=== PATIENT | female | born 1925 | race Caucasian/White ===

== ENCOUNTER 2017-04-01 11:13 | Inpatient (IN) | payer MEDICARE, OTHER ==
[~2017-04-01] VITALS: Ht 162.6 cm; Wt 53.6 kg
[2017-04-01] MEDS ORDERED: SODIUM CHLORIDE FLUSH 10ML SYR IVF ONE (11:30)
[2017-04-01] MEDS ORDERED: PLEASE ENTER ALLERGIES MC SCH ×2 (12:00)
[2017-04-01 12:01] LABS: ASPARTATE AMINO TRANSFERASE 10 U/L (15-37); BLOOD UREA NITROGEN 12 mg/dL (7-18)
[2017-04-01 12:13] LABS: PATH.CAST-FLAG NOT PRESENT; SPERM-FLAG NOT PRESENT; SRC-FLAG NOT PRESENT; XTAL-FLAG NOT PRESENT; YLC-FLAG NOT PRESENT
[2017-04-01 12:32] LABS: HEMATOCRIT 26.2 % (34.6-47.8); HEMOGLOBIN 7.4 g/dL (11.7-16.4); WHITE BLOOD COUNT 19.1 x10^3/uL (3.4-10)
[2017-04-01 12:33] LABS: DIFF TOTAL CELLS COUNTED 100 CELL DIFF
[2017-04-01 12:36] LABS: ANISOCYTOSIS 2+; HYPOCHROMIA 1+; MICROCYTOSIS 1+; VERIFY COUNTS? YES
[2017-04-01 12:37] LABS: POLYCHROMASIA 1+
[2017-04-01 12:38] LABS: POIKILOCYTOSIS 1+; STOMATOCYTES 1+
[2017-04-01 12:39] LABS: LARGE PLATELETS 1+; TARGET CELLS 1+
[2017-04-01] MEDS ORDERED: CITA20TA9 PO (13:12)
[2017-04-01] MEDS ORDERED: FOLI-17 PO (13:13)
[2017-04-01] MEDS ORDERED: SENN-87 PO (13:14)
[2017-04-01] MEDS ORDERED: POLY17PO5 PO (13:14)
[2017-04-01] MEDS ORDERED: QUET50TA5 PO (13:15)
[2017-04-01] MEDS ORDERED: PRED5TAB PO (13:16)
[2017-04-01] MEDS ORDERED: OMEP-110 PO (13:16)
[2017-04-01] MEDS ORDERED: METH10TA54 PO (13:17)
[2017-04-01] MEDS ORDERED: ALEN70TA3 PO (13:18)
[2017-04-01] MEDS ORDERED: NITR100C56 PO (13:19)
[2017-04-01] MEDS ORDERED: POTA20PA25 PO (13:19)
[2017-04-01] MEDS ORDERED: LACT1CAP40 PO (13:20)
[2017-04-01] MEDS ORDERED: OMNIPAQUE 350 MG/ML, 100ML BOTTLE ONE (14:06)
[2017-04-01] MEDS ORDERED: PIPERACILLIN/TAZO/PMX 3.375GM 50 ML IV ONE (15:00)
[2017-04-01] MEDS ORDERED: PIPERACILLIN/TAZO/PMX 3.375GM 50 ML ONE (15:09)
[2017-04-01] MEDS ORDERED: morphine SULFATE 10 MG/ML, 1ML IVPush PRN (15:30)
[2017-04-01] MEDS ORDERED: ONDANSETRON 2MG/ML, 2ML IVPush PRN (15:30)
[2017-04-01] MEDS ORDERED: ENALAPRILAT 1.25 MG/ML, 2ML IVPush PRN (15:30)
[2017-04-01] MEDS ORDERED: GOLYTELY 4,000ML ORAL.SOL PO ONE (18:30)
[2017-04-01] MEDS ORDERED: SODIUM CHLORIDE 0.9% 1,000 ML IV SCH (19:00)
[2017-04-01 22:12] VITALS: BP 148/73
[2017-04-02] MEDS ORDERED: GOLYTELY 4,000ML ORAL.SOL PO ONE (01:00)
[2017-04-02] MEDS: HEPARIN 5,000 UNITS/ML, 1ML SQ SCH ×4 (01:03→23:11)
[2017-04-02 01:17] VITALS: BP 114/71
[2017-04-02] MEDS: FAMOTIDINE 20 MG/2 ML IVPush SCH ×3 (01:24→20:02)
[2017-04-02 05:58] LABS: BLOOD UREA NITROGEN 11 mg/dL (7-18)
[2017-04-02 06:01] LABS: ASPARTATE AMINO TRANSFERASE 14 U/L (15-37)
[2017-04-02 06:12] LABS: HEMOGLOBIN 7.4 g/dL (11.7-16.4)
[2017-04-02] MEDS ORDERED: POTASSIUM CHLORIDE 10 MEQ in D5%-0.9% NACL 1,000 ML IV SCH (06:30)
[2017-04-02 06:32] LABS: DIFF TOTAL CELLS COUNTED 100 CELL DIFF
[2017-04-02 06:36] LABS: ANISOCYTOSIS 2+; HYPOCHROMIA 1+; MICROCYTOSIS 1+; POIKILOCYTOSIS 1+; POLYCHROMASIA 1+; TARGET CELLS 1+; VERIFY COUNTS? YES
[2017-04-02 06:37] LABS: LARGE PLATELETS 1+; STOMATOCYTES 1+
[2017-04-02] MEDS: IRON SUCROSE COMPLEX 100MG/5ML IV SCH (08:32)
[2017-04-02 08:34] VITALS: BP 136/58
[2017-04-02 15:13] VITALS: BP 131/63
[2017-04-02 19:50] VITALS: BP 126/58
[2017-04-02 21:29] VITALS: BP 131/86
[2017-04-02] MEDS: POTASSIUM CHLORIDE 10 MEQ in D5%-0.9% NACL 1,000 ML IV SCH (21:52)
[2017-04-03] VITALS (12 sets, daily range): BP systolic 112–168; BP diastolic 51–84
[2017-04-03] MEDS: POTASSIUM CHLORIDE 10 MEQ in D5%-0.9% NACL 1,000 ML IV SCH ×2 (05:32→12:39)
[2017-04-03 06:40] LABS: ASPARTATE AMINO TRANSFERASE 17 U/L (15-37); BLOOD UREA NITROGEN 5 mg/dL (7-18)
[2017-04-03 08:01] LABS: HEMATOCRIT 23.8 % (34.6-47.8); WHITE BLOOD COUNT 18.7 x10^3/uL (3.4-10)
[2017-04-03 08:02] LABS: HEMOGLOBIN 6.8 g/dL (11.7-16.4)
[2017-04-03] MEDS: IRON SUCROSE COMPLEX 100MG/5ML IV SCH (08:44)
[2017-04-03] MEDS: FAMOTIDINE 20 MG/2 ML IVPush SCH ×2 (08:45→20:26)
[2017-04-03] MEDS: HEPARIN 5,000 UNITS/ML, 1ML SQ SCH ×2 (10:03→18:17)
[2017-04-03] MEDS ORDERED: FUROSEMIDE 20 MG/2 ML IV ONE (23:00)
[2017-04-04] MEDS: HEPARIN 5,000 UNITS/ML, 1ML SQ SCH ×3 (02:01→17:54)
[2017-04-04 02:29] VITALS: BP 122/67
[2017-04-04] MEDS: POTASSIUM CHLORIDE 10 MEQ in D5%-0.9% NACL 1,000 ML IV SCH (05:20)
[2017-04-04 06:10] LABS: HEMATOCRIT 34.8 % (34.6-47.8); HEMOGLOBIN 10.6 g/dL (11.7-16.4); WHITE BLOOD COUNT 25.2 x10^3/uL (3.4-10)
[2017-04-04 06:39] LABS: DIFF TOTAL CELLS COUNTED 100 CELL DIFF
[2017-04-04 06:40] LABS: ANISOCYTOSIS 1+; MICROCYTOSIS 1+; POLYCHROMASIA 1+; VERIFY COUNTS? YES
[2017-04-04 06:41] LABS: HYPOCHROMIA 1+; LARGE PLATELETS 1+; POIKILOCYTOSIS 1+; STOMATOCYTES 1+; TARGET CELLS 1+
[2017-04-04 09:05] VITALS: BP 123/59
[2017-04-04] MEDS: CEFTRIAXONE PMX 2GM/50ML 50 ML IV SCH (09:08)
[2017-04-04] MEDS: IRON SUCROSE COMPLEX 100MG/5ML IV SCH (09:09)
[2017-04-04] MEDS: FAMOTIDINE 20 MG/2 ML IVPush SCH ×2 (09:09→20:16)
[2017-04-04 14:22] VITALS: BP 149/53
[2017-04-04 19:46] VITALS: BP 134/79
[2017-04-05] MEDS: HEPARIN 5,000 UNITS/ML, 1ML SQ SCH ×3 (01:55→18:13)
[2017-04-05 03:49] VITALS: BP 146/72
[2017-04-05] MEDS: FAMOTIDINE 20 MG/2 ML IVPush SCH ×2 (07:54→19:35)
[2017-04-05] MEDS: IRON SUCROSE COMPLEX 100MG/5ML IV SCH (07:54)
[2017-04-05] MEDS: CEFTRIAXONE PMX 2GM/50ML 50 ML IV SCH (07:54)
[2017-04-05 08:25] VITALS: BP 153/68
[2017-04-05 14:59] VITALS: BP 120/74
[2017-04-05] MEDS ORDERED: GOLYTELY 4,000ML ORAL.SOL PO SCH (18:00)
[2017-04-05 18:51] VITALS: BP 148/73
[2017-04-06] VITALS (13 sets, daily range): BP systolic 116–160; BP diastolic 47–89
[2017-04-06] MEDS: HEPARIN 5,000 UNITS/ML, 1ML SQ SCH ×3 (02:00→17:49)
[2017-04-06] MEDS: IRON SUCROSE COMPLEX 100MG/5ML IV SCH (08:07)
[2017-04-06] MEDS: FAMOTIDINE 20 MG/2 ML IVPush SCH ×2 (08:07→20:40)
[2017-04-06] MEDS: CEFTRIAXONE PMX 2GM/50ML 50 ML IV SCH (08:07)
[2017-04-06] MEDS ORDERED: MIDAZOLAM 1 MG/ML, 5ML ONE (09:10)
[2017-04-06] MEDS ORDERED: FENTANYL PF 100 MCG/2ML ONE (09:10)
[2017-04-07] MEDS: HEPARIN 5,000 UNITS/ML, 1ML SQ SCH ×3 (01:34→17:58)
[2017-04-07 01:37] VITALS: BP 161/62
[2017-04-07 07:18] LABS: BLOOD UREA NITROGEN 6 mg/dL (7-18)
[2017-04-07 07:44] VITALS: BP 166/73
[2017-04-07] MEDS: FAMOTIDINE 20 MG/2 ML IVPush SCH ×2 (08:44→21:28)
[2017-04-07] MEDS: CEFTRIAXONE PMX 2GM/50ML 50 ML IV SCH (08:44)
[2017-04-07] MEDS ORDERED: FUROSEMIDE 20 MG/2 ML IV ONE (11:00)
[2017-04-07] MEDS: POTASSIUM CHLORIDE 20 MEQ TAB.ER.PRT PO SCH ×2 (11:57→13:57)
[2017-04-07 13:33] VITALS: BP 136/45
[2017-04-07 18:34] VITALS: BP 137/75
[2017-04-08] MEDS: HEPARIN 5,000 UNITS/ML, 1ML SQ SCH ×3 (02:08→18:00)
[2017-04-08 02:19] VITALS: BP 139/82
[2017-04-08 06:13] LABS: BLOOD UREA NITROGEN 5 mg/dL (7-18)
[2017-04-08 07:08] LABS: HEMATOCRIT 35.5 % (34.6-47.8); HEMOGLOBIN 10.6 g/dL (11.7-16.4); WHITE BLOOD COUNT 22.8 x10^3/uL (3.4-10)
[2017-04-08 07:09] LABS: DIFF TOTAL CELLS COUNTED 100 CELL DIFF
[2017-04-08 07:27] VITALS: BP 156/82
[2017-04-08 07:27] LABS: VERIFY COUNTS? YES
[2017-04-08 07:28] LABS: ANISOCYTOSIS 2+; SPHEROCYTES 1+
[2017-04-08 07:29] LABS: HYPOCHROMIA 2+; MICROCYTOSIS 1+; OVALOCYTES 1+; POIKILOCYTOSIS 2+
[2017-04-08 07:30] LABS: TARGET CELLS 1+
[2017-04-08 07:31] LABS: GIANT PLATELETS 1+; LARGE PLATELETS 1+
[2017-04-08] MEDS: FAMOTIDINE 20 MG/2 ML IVPush SCH ×2 (08:57→22:09)
[2017-04-08] MEDS: CEFTRIAXONE PMX 2GM/50ML 50 ML IV SCH (08:57)
[2017-04-08] MEDS ORDERED: FUROSEMIDE 40 MG/4 ML IV ONE (09:00)
[2017-04-08 13:22] VITALS: BP 126/74
[2017-04-08 18:30] VITALS: BP 146/73
[2017-04-09 01:59] VITALS: BP 116/65
[2017-04-09] MEDS: HEPARIN 5,000 UNITS/ML, 1ML SQ SCH ×3 (02:30→17:30)
[2017-04-09 07:09] LABS: HEMATOCRIT 37.6 % (34.6-47.8); HEMOGLOBIN 11.1 g/dL (11.7-16.4); WHITE BLOOD COUNT 18.4 x10^3/uL (3.4-10)
[2017-04-09 07:13] LABS: BLOOD UREA NITROGEN 7 mg/dL (7-18)
[2017-04-09 08:00] VITALS: BP 112/63
[2017-04-09] MEDS ORDERED: FUROSEMIDE 40 MG/4 ML IV ONE (08:30)
[2017-04-09 08:55] LABS: DIFF TOTAL CELLS COUNTED 100 CELL DIFF
[2017-04-09] MEDS: CEFTRIAXONE PMX 2GM/50ML 50 ML IV SCH (09:29)
[2017-04-09] MEDS: POTASSIUM CHLORIDE 20 MEQ TAB.ER.PRT PO SCH ×2 (09:30→14:39)
[2017-04-09] MEDS: FAMOTIDINE 20 MG/2 ML IVPush SCH ×2 (09:30→20:41)
[2017-04-09 09:45] LABS: VERIFY COUNTS? YES
[2017-04-09 09:46] LABS: ANISOCYTOSIS 2+; HYPOCHROMIA 2+; LARGE PLATELETS 1+; MICROCYTOSIS 1+; POIKILOCYTOSIS 2+
[2017-04-09 09:47] LABS: SPHEROCYTES 1+; TARGET CELLS 1+
[2017-04-09 14:58] VITALS: BP 110/74
[2017-04-09 20:00] VITALS: BP 134/82
[2017-04-10 02:00] VITALS: BP 131/87
[2017-04-10] MEDS: HEPARIN 5,000 UNITS/ML, 1ML SQ SCH ×2 (03:48→10:00)
[2017-04-10] MEDS ORDERED: FUROSEMIDE 40 MG/4 ML IV ONE (06:30)
[2017-04-10] MEDS ORDERED: POTASSIUM CHLORIDE 20 MEQ TAB.ER.PRT PO ONE (06:30)
[2017-04-10 07:46] VITALS: BP 150/85
[2017-04-10] MEDS: FAMOTIDINE 20 MG/2 ML IVPush SCH (08:49)
[2017-04-10] MEDS: CEFTRIAXONE PMX 2GM/50ML 50 ML IV SCH (08:49)
[2017-04-10] MEDS ORDERED: FLU VACC QS2017-18 (36MOS+) UP/PF 0.5 ML IM-VACC ONE (14:00)
== END 2017-04-10 15:12 | disposition home or self-care (01) | DRG 374 ==
LOC: ED 15:29 → EDIP 15:30 → 3NE 21:45
PROVIDERS: ADMIT Family Medicine; ATTEND Family Medicine
PROC: 0T9B70Z Drainage of Bladder with Drainage Device, Via Natural or Artificial Opening (ICD-10-PCS; 2017-04-01)
PROC: 30233N1 Transfusion of Nonautologous Red Blood Cells into Peripheral Vein, Percutaneous Approach (ICD-10-PCS; 2017-04-03)
PROC: 0DBK8ZX Excision of Ascending Colon, Via Natural or Artificial Opening Endoscopic, Diagnostic (ICD-10-PCS; principal; 2017-04-06 09:30)
DX: C18.2 Malignant neoplasm of ascending colon (principal); J96.01 Acute respiratory failure with hypoxia; E46 Unspecified protein-calorie malnutrition; D69.6 Thrombocytopenia, unspecified; E87.70 Fluid overload, unspecified; D62 Acute posthemorrhagic anemia; N39.0 Urinary tract infection, site not specified; K59.00 Constipation, unspecified; R19.00 Intra-abdominal and pelvic swelling, mass and lump, unspecified site; F03.90 Unspecified dementia, unspecified severity, without behavioral disturbance, psychotic disturbance, mood disturbance, and anxiety; I25.10 Atherosclerotic heart disease of native coronary artery without angina pectoris; D75.89 Other specified diseases of blood and blood-forming organs; E87.6 Hypokalemia; B96.4 Proteus (mirabilis) (morganii) as the cause of diseases classified elsewhere; M85.80 Other specified disorders of bone density and structure, unspecified site; Z96.641 Presence of right artificial hip joint; D50.9 Iron deficiency anemia, unspecified; Z79.899 Other long term (current) drug therapy; Z95.1 Presence of aortocoronary bypass graft
CPT/HCPCS: 36415; 71010; 71250; 74176; 74177; 80048; 80053; 81001; 82040; 82378; 83605; 83735; 85025; 85610; 85730; 86850; 86900; 86923; 87040; 87077; 87086; 87186; 88305; 90686; 93005; 96365; 99152; 99153; J0696; J1644; J1756; J1940; J2250; J2543; J3010; J3480; J7042; Q9967; J7030; P9016; S0028